=== PATIENT | female | born 1965 | race Hispanic/Latino ===

== ENCOUNTER 2020-08-11 18:44 | Inpatient (IN) | payer MEDICAID ==
[2020-08-12] MEDS: TEMAZEPAM 15 MG CAP PO PRN ×2 (00:52→21:31)
--- NOTE | 2020-08-12 09:33 | History and Physical Report ---
GP History & Physical - History of Present Illness Date of admission: 08/11/20 Date of Examination: 08/12/20 Reason for Admission: Impaired reality testing, Failure of Outpatient Treatment History of Present Illness: Per Admission Note: pt arrived to the unit at approximately 2135 ambulatory accompanied by two EMS staff on steady gait. pt is on 1013 for paranoia and hallucinations for two weeks. pt is alert and orientedx4, calm and cooperative, pt reported that she got upset and got of control that is why she is here. she reported she has an amplifier in her ear where she can hear other conversations. pt denies si/hi, denies a/v/h. pt said that she went to skilled nursing after being partial paralized 2019; had peg tube that was removed on July 24. pt has healing pressure ulcer to sacrum area, no drainage, wound appeared clean and we ll taken care of, pt stated that she washes it with soap and water. scars on abdominal area where peg tube was taken out, bruises on bilateral arms. pt signs all admission papers including 1011. pt has history of HTN, DVT, anemia, divertuculitis, hypothyroidism, anxiety, thrombocytopenia, cognitive communication deficit, schizoaffective. pt orients to unit and unit guideline explained. snack offered to pt, temazepam 15mg po given for sleep. vital signs stable, no distress noted, will continue to monitor for safety. Lisa Cuellar is a 54y/o female patient who was admitted for having psychosis. During my evaluation of the patient she is lying in bed awake. She patient is delusional, paranoid, having flight of ideas and difficult to follow. She starts by showing my bruises on her right arm. The patient says "I was given shots by these two guards." The patient says she has a son, whom everybody keeps telling her that he's , according to her. She says she is in a skilled nursing and was partially paralized. She also states she has a "home at [facility] The patient then starts talking about "this man and his . I was going to their catholic." She says "they have an amplifier in my ear. He's evil." She says "I know nobody believes me but here's my right hand to God." She raises her left hand. The patient then starts digging in her ear, and states "there is some sticky stuff in my ear. I can hear all sorts of music." PAST PSYCHIATRIC HISTORY: Unable to adequately assess PAST MEDICAL HISTORY: HTN, DVT, anemia, diverticulites Family Psychiatric History: None reported or documented SOCIAL HISTORY Unable to assess REVIEW OF SYSTEMS Constitutional: Negative for weight loss ENT: Negative for stridor Respiratory: Negative for cough or hemoptysis All other systems reviewed and are negative MENTAL STATUS EXAMINATION General Appearance and Behavior: Age appropriate, good hygiene, wearing appropriate clothes, cooperative polite with questioning. Cooperation: engaged Psychomotor Behavior: Psychomotor normal Mood: "not good" Affect and affective range: congruent with stated mood Thought Process: impaired Thought Content: delusions, paranoia, hallucinations Speech: flight of ideas Suicidal Ideation: Denies Homicidal Ideation: Denies Hallucinations: Auditory Delusions: yes, paranoid Impulse Control: Impaired Insight and Judgment: Poor Memory: Limited Attention: attentive Orientation: a/o Diagnoses: Schizoaffective Disorder Treatment Plan Patient admitted for inpatient psychiatric evaluation, medication adjustment and close monitoring The patient's behavior, mood, sleep and appetite will be closely monitored. Patient enrolled in individual and group therapeutic sessions and encouraged to attend. Patient provided with a safe and structured environment. Patient's physical health needs will be addressed by the Hospitalist. Hospitalist Consulted Labs including CBC, CMP, Lipid profile and Hemoglobin A1C levels ordered for baseline reference Social Assessment will be completed and the Data Analysis Manager will work with patient and family to ensure a suitable and safe disposition Medication adjustment will be made as clinically indicated Start Home Meds Start Olanzapine 5mg po daily Usual Wellness Mu-Ism/Preservation: - Start Trazodone 50 mg po QHS & 50 mg po QHS PRN between 10 PM & 2 AM for insomnia - Start Melatonin 5 mg po QHS to promote circadian rhythm The patient agreed on the treatment plan, understood the risk, benefit, alternative treatment, potential consequence of no treatment, and gave informed consent. Initial Certification I certify that the inpatient psychiatric services are required for treatment that could reasonably be expected to improve the patient's condition. Estimated days: 3 Post hospital care: primary care provider, psychiatric provider Case staffed with Dr. Mina Legal Status: Voluntary Reaction to Hospitalization: Accepting Medications and Allergies Allergies Allergy/AdvReac Type Severity Reaction Status Date / Time Penicillins Allergy Unknown Verified 08/11/20 21:07 Home Medications Medication Instructions Recorded Confirmed Last Taken Type Ascorbic Acid [Vitamin C] 500 mg PO DAILY 08/11/20 08/11/20 Unknown History Cholecalciferol Vit D3 [Vitamin D3 1,000 unit PO QDAY 08/11/20 08/11/20 Unknown History 1,000 UNIT TAB] Temazepam [Restoril] 15 mg PO QHS PRN 08/11/20 08/11/20 Unknown History Active Meds: Active Medications Temazepam (Temazepam 15 Mg Cap) 15 mg PO QHS PRN PRN Reason: Insomnia Last Admin: 08/12/20 00:52 Dose: 15 mg Documented by: Results - Results Labs/Vitals: Laboratory Last Values POC Glucose 95 mg/dL (70-105) 08/11/20 21:45 Last Vital Signs Temp 97.9 F 08/12/20 08:08 Pulse 96 H 08/12/20 08:08 Resp 18 08/12/20 08:08 BP 161/98 08/12/20 08:10 Pulse Ox 98 08/12/20 08:08 Physical Examination - Constitutional Vitals: Vital Signs Temp Pulse Resp BP Pulse Ox 97.9 F 96 H 18 161/98 98 08/12/20 08:08 08/12/20 08:08 08/12/20 08:08 08/12/20 08:10 08/12/20 08:08 Temperature -Last 24 Hours Temperature 97.9 F Temperature 98.1 F Mental Status Exam - Vital signs Last Vital Signs Temp 97.9 F 08/12/20 08:08 Pulse 96 H 08/12/20 08:08 Resp 18 08/12/20 08:08 BP 161/98 08/12/20 08:10 Pulse Ox 98 08/12/20 08:08 Physician Certification - Certification Statement Physician Certification Statement: This is an acknowledgement statement that LISA CUELLAR is a 54 year old F who requires inpatient psychiatric admission for treatment which could reasonably be expected to improve the patient's condition for Estimated period of time patient will need to remain in the hospital: [ ] Plan for post-hospital care: [ ]
[2020-08-12] MEDS: CHOLECALCIFEROL (VIT D3) 1000 UNIT (25 mcg) TAB PO SCH (10:40)
[2020-08-12] MEDS: ASCORBIC ACID 500 MG TAB PO SCH (10:40)
--- NOTE | 2020-08-13 10:26 | Progress Note ---
Subjective Date of service: 08/13/20 Principal diagnosis: Schizoaffective Disorder Subjective Comment: Per nurse note: pt is alert and orientedx4, calm and cooperative, able to make needs known, interacts appropriately with peers, she has flight of ideas, she is delusional that she might be , she believed she was raped while asleep in prison. pt was medicated with restoril 15mg po prn sleep with minimal effect, she presents as sleeping for 5hrs, no distress noted, will continue to monitor for safety. The patient was seen today, she is up brushing her teeth. She is delusional, having flight of ideas and difficulty to follow. She appears anxious. She is fidgety and constantly talking. She showing me her arm and states she wants pictures of it. They are old bruises. She starts talking about some stuff she says happened at [facility]. She then says she gave $50 to some woman to buy her some clothes. The patient says "it's some woman who was here." She then says "I have to talk to my son, he might be ." REVIEW OF SYSTEMS Constitutional: Negative for weight loss ENT: Negative for stridor Respiratory: Negative for cough or hemoptysis All other systems reviewed and are negative MENTAL STATUS EXAMINATION General Appearance and Behavior: Age appropriate, good hygiene, wearing appropriate clothes, cooperative polite with questioning. Cooperation: engaged Psychomotor Behavior: Psychomotor normal Mood: "not good" Affect and affective range: congruent with stated mood Thought Process: impaired Thought Content: delusions, paranoia, hallucinations Speech: flight of ideas Suicidal Ideation: Denies Homicidal Ideation: Denies Hallucinations: Auditory Delusions: yes, paranoid Impulse Control: Impaired Insight and Judgment: Poor Memory: Limited Attention: attentive Orientation: a/o Diagnoses: Schizoaffective Disorder Treatment Plan Patient admitted for inpatient psychiatric evaluation, medication adjustment and close monitoring The patient's behavior, mood, sleep and appetite will be closely monitored. Patient enrolled in individual and group therapeutic sessions and encouraged to attend. Patient provided with a safe and structured environment. Patient's physical health needs will be addressed by the Hospitalist. Hospitalist Consulted Labs including CBC, CMP, Lipid profile and Hemoglobin A1C levels ordered for baseline reference Social Assessment will be completed and the Shoulder Joiner will work with patient and family to ensure a suitable and safe disposition Medication adjustment will be made as clinically indicated Increase Olanzapine 10mg po daily Start Klonopin 0.5mg po BID x 2 days Usual Wellness Caodaism/Preservation: - Start Trazodone 50 mg po QHS & 50 mg po QHS PRN between 10 PM & 2 AM for insomnia - Start Melatonin 5 mg po QHS to promote circadian rhythm The patient agreed on the treatment plan, understood the risk, benefit, alternative treatment, potential consequence of no treatment, and gave informed consent. Estimated days: 3 Post hospital care: primary care provider, psychiatric provider Case staffed with Dr. Mina Medications and Allergies Allergies Allergy/AdvReac Type Severity Reaction Status Date / Time Penicillins Allergy Unknown Verified 08/11/20 21:07 Home Medications Medication Instructions Recorded Confirmed Last Taken Type Ascorbic Acid [Vitamin C] 500 mg PO DAILY 08/11/20 08/11/20 Unknown History Cholecalciferol Vit D3 [Vitamin D3 1,000 unit PO QDAY 08/11/20 08/11/20 Unknown History 1,000 UNIT TAB] Temazepam [Restoril] 15 mg PO QHS PRN 08/11/20 08/11/20 Unknown History Active Meds: Active Medications Ascorbic Acid (Ascorbic Acid 500 Mg Tab) 500 mg PO DAILY [facility] Last Admin: 08/12/20 10:40 Dose: 500 mg Documented by: Cholecalciferol (Cholecalciferol (Vit D3) 1000 Unit (25 Mcg) Tab) 1,000 unit PO QDAY [facility] Last Admin: 08/12/20 10:40 Dose: 1,000 unit Documented by: Olanzapine (Olanzapine 5 Mg Tab) 5 mg PO QDAY [facility] Last Admin: 08/12/20 10:43 Dose: Not Given Documented by: Temazepam (Temazepam 15 Mg Cap) 15 mg PO QHS PRN PRN Reason: Insomnia Last Admin: 08/12/20 21:31 Dose: 15 mg Documented by: Results - Results Labs/Vitals: Laboratory Last Values POC Glucose 95 mg/dL (70-105) 08/11/20 21:45 Last Vital Signs Temp 97.9 F 08/13/20 08:05 Pulse 75 08/13/20 08:05 Resp 18 08/13/20 08:05 BP 165/104 08/13/20 08:05 Pulse Ox 96 08/13/20 08:05
[2020-08-13] MEDS: CHOLECALCIFEROL (VIT D3) 1000 UNIT (25 mcg) TAB PO SCH (10:27)
[2020-08-13] MEDS: ASCORBIC ACID 500 MG TAB PO SCH (14:35)
[2020-08-13 15:44] LABS: Basophils % (Auto) 0.6 % (0.0-1.8); Eosinophils # (Auto) 0.1 K/mm3 (0.0-0.4); Eosinophils % (Auto) 0.9 % (0.0-4.3); Hematocrit 39.3 % (30.3-42.9); Hemoglobin 13.9 gm/dl (10.1-14.3); Lymphocytes # (Auto) 2.4 K/mm3 (1.2-5.4); Lymphocytes % (Auto) 32.1 % (13.4-35.0); Mean Corpuscular HGB Conc 35 % (30-34); Mean Corpuscular Volume 87 fl (79-97); Monocytes # (Auto) 0.5 K/mm3 (0.0-0.8); Monocytes % (Auto) 6.1 % (0.0-7.3); Platelet Count 321 K/mm3 (140-440); Red Blood Count 4.52 M/mm3 (3.65-5.03)
[2020-08-13 16:05] LABS: Alanine Aminotransferase 36 units/L (7-56); Albumin 4.4 g/dL (3.9-5); Blood Urea Nitrogen 21 mg/dL (7-17); Calcium 9.8 mg/dL (8.4-10.2); Chol/HDL Ratio 2.77 %; HDL Cholesterol 53 mg/dL (40-59); Hemolysis Index 10; LDL Cholesterol,Direct 80 mg/dL (50-130)
[2020-08-13 16:07] LABS: BUN/Creatinine Ratio 42
[2020-08-13] MEDS: clonazePAM 0.5 MG TAB PO SCH ×2 (17:00→21:33)
[2020-08-13] MEDS: TEMAZEPAM 15 MG CAP PO PRN (21:54)
[2020-08-14] MEDS: clonazePAM 0.5 MG TAB PO SCH (02:55)
--- NOTE | 2020-08-14 09:27 | Progress Note ---
Subjective Date of service: 08/14/20 Principal diagnosis: Schizoaffective Disorder Subjective Comment: Per nurse: pt told nurse she does not take olanzapine The patient was seen today, she is still delusional and speaking of amplifiers at a [facility] she used to go to. She also is still obsessing over the nursing place she was last at. She denies SI/HI or hallucinations of any kind. REVIEW OF SYSTEMS Constitutional: Negative for weight loss ENT: Negative for stridor Respiratory: Negative for cough or hemoptysis All other systems reviewed and are negative MENTAL STATUS EXAMINATION General Appearance and Behavior: Age appropriate, good hygiene, wearing appropriate clothes, cooperative polite with questioning. Cooperation: engaged Psychomotor Behavior: Psychomotor normal Mood: "not good" Affect and affective range: congruent with stated mood Thought Process: impaired Thought Content: delusions, paranoia, hallucinations Speech: flight of ideas Suicidal Ideation: Denies Homicidal Ideation: Denies Hallucinations: Auditory Delusions: yes, paranoid Impulse Control: Impaired Insight and Judgment: Poor Memory: Limited Attention: attentive Orientation: a/o Diagnoses: Schizoaffective Disorder Treatment Plan Patient admitted for inpatient psychiatric evaluation, medication adjustment and close monitoring The patient's behavior, mood, sleep and appetite will be closely monitored. Patient enrolled in individual and group therapeutic sessions and encouraged to attend. Patient provided with a safe and structured environment. Patient's physical health needs will be addressed by the Hospitalist. Hospitalist Consulted Labs including CBC, CMP, Lipid profile and Hemoglobin A1C levels ordered for baseline reference Social Assessment will be completed and the Lightning Rod Erector will work with patient and family to ensure a suitable and safe disposition Medication adjustment will be made as clinically indicated d/c Olanzapine 10mg po daily Start Abilify 10mg po daily Usual Wellness Jain/Preservation: - Start Trazodone 50 mg po QHS & 50 mg po QHS PRN between 10 PM & 2 AM for insomnia - Start Melatonin 5 mg po QHS to promote circadian rhythm The patient agreed on the treatment plan, understood the risk, benefit, alternative treatment, potential consequence of no treatment, and gave informed consent. Estimated days: 3 Post hospital care: primary care provider, psychiatric provider Case staffed with Dr. Mina Medications and Allergies Allergies Allergy/AdvReac Type Severity Reaction Status Date / Time Penicillins Allergy Unknown Verified 08/11/20 21:07 Home Medications Medication Instructions Recorded Confirmed Last Taken Type Ascorbic Acid [Vitamin C] 500 mg PO DAILY 08/11/20 08/11/20 Unknown History Cholecalciferol Vit D3 [Vitamin D3 1,000 unit PO QDAY 08/11/20 08/11/20 Unknown History 1,000 UNIT TAB] Temazepam [Restoril] 15 mg PO QHS PRN 08/11/20 08/11/20 Unknown History Active Meds: Active Medications Ascorbic Acid (Ascorbic Acid 500 Mg Tab) 500 mg PO DAILY [facility] Last Admin: 08/13/20 14:35 Dose: 500 mg Documented by: Cholecalciferol (Cholecalciferol (Vit D3) 1000 Unit (25 Mcg) Tab) 1,000 unit PO QDAY [facility] Last Admin: 08/13/20 10:27 Dose: 1,000 unit Documented by: Clonazepam (Clonazepam 0.5 Mg Tab) 0.25 mg PO BID [facility] Stop: 08/15/20 06:00 Last Admin: 08/14/20 02:55 Dose: 0.25 mg Documented by: Olanzapine (Olanzapine 10 Mg Tab) 10 mg PO QDAY [facility] Temazepam (Temazepam 15 Mg Cap) 15 mg PO QHS PRN PRN Reason: Insomnia Last Admin: 08/13/20 21:54 Dose: 15 mg Documented by: Results - Results Labs/Vitals: Laboratory Last Values WBC 7.4 K/mm3 (4.5-11.0) 08/13/20 15:15 RBC 4.52 M/mm3 (3.65-5.03) 08/13/20 15:15 Hgb 13.9 gm/dl (10.1-14.3) 08/13/20 15:15 Hct 39.3 % (30.3-42.9) 08/13/20 15:15 MCV 87 fl (79-97) 08/13/20 15:15 MCH 31 pg (28-32) 08/13/20 15:15 MCHC 35 % (30-34) H 08/13/20 15:15 RDW 13.0 % (13.2-15.2) L 08/13/20 15:15 Plt Count 321 K/mm3 (140-440) 08/13/20 15:15 Lymph % (Auto) 32.1 % (13.4-35.0) 08/13/20 15:15 Smyth % (Auto) 6.1 % (0.0-7.3) 08/13/20 15:15 Eos % (Auto) 0.9 % (0.0-4.3) 08/13/20 15:15 Baso % (Auto) 0.6 % (0.0-1.8) 08/13/20 15:15 Lymph # (Auto) 2.4 K/mm3 (1.2-5.4) 08/13/20 15:15 Smyth # (Auto) 0.5 K/mm3 (0.0-0.8) 08/13/20 15:15 Eos # (Auto) 0.1 K/mm3 (0.0-0.4) 08/13/20 15:15 Baso # (Auto) 0.0 K/mm3 (0.0-0.1) 08/13/20 15:15 Seg Neutrophils % 60.3 % (40.0-70.0) 08/13/20 15:15 Seg Neutrophils # 4.4 K/mm3 (1.8-7.7) 08/13/20 15:15 Sodium 135 mmol/L (137-145) L 08/13/20 15:15 Potassium 4.0 mmol/L (3.6-5.0) 08/13/20 15:15 Chloride 99.1 mmol/L (98-107) 08/13/20 15:15 Carbon Dioxide 26 mmol/L (22-30) 08/13/20 15:15 Anion Gap 14 mmol/L 08/13/20 15:15 BUN 21 mg/dL (7-17) H 08/13/20 15:15 Creatinine 0.5 mg/dL (0.6-1.2) L 08/13/20 15:15 Estimated GFR > 60 ml/min 08/13/20 15:15 BUN/Creatinine Ratio 42 % 08/13/20 15:15 Glucose 100 mg/dL (65-100) 08/13/20 15:15 POC Glucose 95 mg/dL (70-105) 08/11/20 21:45 Hemoglobin A1c 5.2 % (4-6) 08/13/20 15:15 Calcium 9.8 mg/dL (8.4-10.2) 08/13/20 15:15 Total Bilirubin 0.60 mg/dL (0.1-1.2) 08/13/20 15:15 AST 30 units/L (5-40) 08/13/20 15:15 ALT 36 units/L (7-56) 08/13/20 15:15 Alkaline Phosphatase 131 units/L (35-129) H 08/13/20 15:15 Total Protein 7.4 g/dL (6.3-8.2) 08/13/20 15:15 Albumin 4.4 g/dL (3.9-5) 08/13/20 15:15 Albumin/Globulin Ratio 1.5 % 08/13/20 15:15 Triglycerides 152 mg/dL (2-149) H 08/13/20 15:15 Cholesterol 147 mg/dL (50-199) 08/13/20 15:15 LDL Cholesterol Direct 80 mg/dL (50-130) 08/13/20 15:15 HDL Cholesterol 53 mg/dL (40-59) 08/13/20 15:15 Cholesterol/HDL Ratio 2.77 % 08/13/20 15:15 TSH 0.893 mlU/mL (0.270-4.200) 08/13/20 15:15 Last Vital Signs Temp 98.3 F 08/13/20 19:42 Pulse 88 08/13/20 19:42 Resp 16 08/13/20 19:42 BP 163/97 08/13/20 19:42 Pulse Ox 99 08/13/20 19:42
[2020-08-14] MEDS: CHOLECALCIFEROL (VIT D3) 1000 UNIT (25 mcg) TAB PO SCH (09:32)
[2020-08-14] MEDS: ASCORBIC ACID 500 MG TAB PO SCH (09:32)
[2020-08-14] MEDS: ARIPiprazole 10 MG TAB PO SCH (12:28)
--- NOTE | 2020-08-14 12:33 | Consultation ---
History of Present Illness - Reason for Consult Consult date: 08/14/20 medical mx - History of Present Illness This is a 54-year-old female with a history of hypertension, DVT, anemia presented to ER for paranoia and hallucinations for 2 weeks. Patient was on 1030 in the ER and admitted for psychosis. Patient has been admitted to the psych unit for further stabilization. Hospitalist service has been consulted for medical management. Today during my encounter patient was eating lunch. S he denied any chest pain shortness of breath nausea vomiting abdominal pain or lower extremity swelling. She did endorse constipation and requested for stool softener as needed. Patient appeared to be alert awake and oriented x3. Vitals noted and appeared to be stable. PAST MEDICAL AND SURGICAL HISTORY: HTN, DVT, anemia, diverticulites Family Psychiatric History: None reported or documented SOCIAL HISTORY: Denies any history of drug abuse. REVIEW OF SYSTEMS Constitutional: no fever, no chills, no weight loss Ears, eyes, nose, mouth and throat: no nasal congestion, no nasal discharge, no sinus pressure, no vision change, no red eye. Neck: No neck pain or rigidity. Cardiovascular: No chest pain, no orthopnea, no palpitations, no leg swelling Respiratory: No shortness of breath, no cough, no congestion, no wheezing Gastrointestinal: no abdominal pain, no nausea, no vomiting Genitourinary : no dysuria, no hematuria Musculoskeletal: no joint swelling or muscle ache Integumentary: no rash, no pruritis Neurological: no parathesias, no numbness, no tingling Endocrine: no cold or heat intolerance, no polyuria or polydipsia Hematologic/Lymphatic: no easy bruising, no easy bleeding, no gland swelling Allergic/Immunologic: no urticaria, no angioedema. Physical exam: GENERAL: well-developed malnourished white female without any acute distress HEENT: Normocephalic. Atraumatic. No conjunctival congestion or icterus. Patient has moist mucous membranes. NECK: Supple. Trachea midline. CHEST/LUNGS: Clear to auscultated bilaterally, breathing nonlabored. No wheezes crackles or rhonchi. HEART/CARDIOVASCULAR: Regular in rate and rhythm. S1 and S2 positive. ABDOMEN: Abdomen is soft, nontender. Patient has normal bowel sounds. SKIN: There is no rash. Warm and dry. NEURO: No focal motor deficit. Follows command. MUSCULOSKELETAL: No joint effusion or tenderness. EXTRIMITY: No edema, no cyanosis or clubbing. PSYCH: Cooperative. Diagnoses: Schizoaffective Disorder A/p Schizoaffective disorder Patient admitted for inpatient psychiatric evaluation, medication adjustment and close monitoring, will defer to primary for management Other chronic medical problems Hypertension, uncontrolled History of DVT on any anticoagulation Moderate protein calorie malnutrition History of diverticulosis --Patient clinically appears to be stable. Continue current home medications --We will initiate Norvasc for blood pressure control --MiraLAX as needed for constipation --Encourage nutritional supplements --Further follow-up as outpatient with PCP --DVT prophylaxis, patient is ambulatory Medications and Allergies Allergies Allergy/AdvReac Type Severity Reaction Status Date / Time Penicillins Allergy Unknown Verified 08/11/20 21:07 Home Medications Medication Instructions Recorded Confirmed Last Taken Type Ascorbic Acid [Vitamin C] 500 mg PO DAILY 08/11/20 08/11/20 Unknown History Cholecalciferol Vit D3 [Vitamin D3 1,000 unit PO QDAY 08/11/20 08/11/20 Unknown History 1,000 UNIT TAB] OLANZapine [Zyprexa] 5 mg PO DAILY #30 tablet 08/16/20 Unknown Rx Temazepam [Restoril] 15 mg PO QHS PRN #30 cap 08/16/20 Unknown Rx Active Meds: Active Medications Aripiprazole (Aripiprazole 10 Mg Tab) 10 mg PO QDAY [facility] Last Admin: 08/14/20 12:28 Dose: Not Given Documented by: Ascorbic Acid (Ascorbic Acid 500 Mg Tab) 500 mg PO DAILY [facility] Last Admin: 08/14/20 09:32 Dose: 500 mg Documented by: Cholecalciferol (Cholecalciferol (Vit D3) 1000 Unit (25 Mcg) Tab) 1,000 unit PO QDAY [facility] Last Admin: 08/14/20 09:32 Dose: 1,000 unit Documented by: Temazepam (Temazepam 15 Mg Cap) 15 mg PO QHS PRN PRN Reason: Insomnia Last Admin: 08/13/20 21:54 Dose: 15 mg Documented by: Exam - Constitutional Vitals: Temp Pulse Resp BP Pulse Ox 98.3 F 88 16 163/97 99 08/13/20 19:42 08/13/20 19:42 08/13/20 19:42 08/13/20 19:42 08/13/20 19:42 Results - Labs CBC & Chem 7: 07/05/21 15:15 08/13/20 15:15 Labs: Abnormal lab results 08/13/20 08/13/20 Range/Units 15:15 15:15 MCHC 35 H (30-34) % RDW 13.0 L (13.2-15.2) % Sodium 135 L (137-145) mmol/L BUN 21 H (7-17) mg/dL Creatinine 0.5 L (0.6-1.2) mg/dL Alkaline Phosphatase 131 H (35-129) units/L Triglycerides 152 H (2-149) mg/dL
[2020-08-14] MEDS: TEMAZEPAM 15 MG CAP PO PRN (21:30)
[2020-08-15] MEDS: ASCORBIC ACID 500 MG TAB PO SCH (09:34)
[2020-08-15] MEDS: CHOLECALCIFEROL (VIT D3) 1000 UNIT (25 mcg) TAB PO SCH (09:34)
[2020-08-15] MEDS: ARIPiprazole 10 MG TAB PO SCH (09:37)
--- NOTE | 2020-08-15 10:26 | Progress Note ---
Subjective Date of service: 08/15/20 Principal diagnosis: Schizoaffective Disorder Subjective Comment: Per nurse: Per nurse the patient has been refusing oral psych meds The patient was seen today, she is still very delusional. She is talking about her " son" and trying to locate him. She denies SI/HI or hallucinations of any kind. Reason for continued acute psychiatric inpatient treatment: The patient has been refusing oral psych meds and is still very delusional. Will give long acting injection; Haldol decanoate since tolerability not established for invega sustenna. Will continue to monitor the patient for effectiveness and SE. REVIEW OF SYSTEMS Constitutional: Negative for weight loss ENT: Negative for stridor Respiratory: Negative for cough or hemoptysis All other systems reviewed and are negative MENTAL STATUS EXAMINATION General Appearance and Behavior: Age appropriate, good hygiene, wearing appropriate clothes, cooperative polite with questioning. Cooperation: engaged Psychomotor Behavior: Psychomotor normal Mood: "not good" Affect and affective range: congruent with stated mood Thought Process: impaired Thought Content: delusions, paranoia, hallucinations Speech: flight of ideas Suicidal Ideation: Denies Homicidal Ideation: Denies Hallucinations: Auditory Delusions: yes, paranoid Impulse Control: Impaired Insight and Judgment: Poor Memory: Limited Attention: attentive Orientation: a/o Diagnoses: Schizoaffective Disorder Treatment Plan Patient admitted for inpatient psychiatric evaluation, medication adjustment and close monitoring The patient's behavior, mood, sleep and appetite will be closely monitored. Patient enrolled in individual and group therapeutic sessions and encouraged to attend. Patient provided with a safe and structured environment. Patient's physical health needs will be addressed by the Hospitalist. Hospitalist Consulted Labs including CBC, CMP, Lipid profile and Hemoglobin A1C levels ordered for baseline reference Social Assessment will be completed and the Cvicu Rn will work with patient and family to ensure a suitable and safe disposition Medication adjustment will be made as clinically indicated d/c Olanzapine 10mg po daily d/c Abilify 10mg po daily Haldol Deconoate 50mg IM x 1, the patient refusing oral antipsychotics Usual Wellness Jehovah'[employer] Witness/Preservation: - Start Trazodone 50 mg po QHS & 50 mg po QHS PRN between 10 PM & 2 AM for insomnia - Start Melatonin 5 mg po QHS to promote circadian rhythm The patient agreed on the treatment plan, understood the risk, benefit, alternative treatment, potential consequence of no treatment, and gave informed consent. Estimated days: 3 Post hospital care: primary care provider, psychiatric provider Case staffed with Dr. Mina Medications and Allergies Allergies Allergy/AdvReac Type Severity Reaction Status Date / Time Penicillins Allergy Unknown Verified 08/11/20 21:07 Home Medications Medication Instructions Recorded Confirmed Last Taken Type Ascorbic Acid [Vitamin C] 500 mg PO DAILY 08/11/20 08/11/20 Unknown History Cholecalciferol Vit D3 [Vitamin D3 1,000 unit PO QDAY 08/11/20 08/11/20 Unknown History 1,000 UNIT TAB] Temazepam [Restoril] 15 mg PO QHS PRN 08/11/20 08/11/20 Unknown History Active Meds: Active Medications Aripiprazole (Aripiprazole 10 Mg Tab) 10 mg PO QDAY [facility] [place] Last Admin: 08/15/20 09:37 Dose: Not Given Documented by: Ascorbic Acid (Ascorbic Acid 500 Mg Tab) 500 mg PO DAILY [facility] [place] Last Admin: 08/15/20 09:34 Dose: 500 mg Documented by: Cholecalciferol (Cholecalciferol (Vit D3) 1000 Unit (25 Mcg) Tab) 1,000 unit PO QDAY [facility] [place] Last Admin: 08/15/20 09:34 Dose: 1,000 unit Documented by: Temazepam (Temazepam 15 Mg Cap) 15 mg PO QHS PRN PRN Reason: Insomnia Last Admin: 08/14/20 21:30 Dose: 15 mg Documented by: Results - Results Labs/Vitals: Laboratory Last Values WBC 7.4 K/mm3 (4.5-11.0) 08/13/20 15:15 RBC 4.52 M/mm3 (3.65-5.03) 08/13/20 15:15 Hgb 13.9 gm/dl (10.1-14.3) 08/13/20 15:15 Hct 39.3 % (30.3-42.9) 08/13/20 15:15 MCV 87 fl (79-97) 08/13/20 15:15 MCH 31 pg (28-32) 08/13/20 15:15 MCHC 35 % (30-34) H 08/13/20 15:15 RDW 13.0 % (13.2-15.2) L 08/13/20 15:15 Plt Count 321 K/mm3 (140-440) 08/13/20 15:15 Lymph % (Auto) 32.1 % (13.4-35.0) 08/13/20 15:15 [place] % (Auto) 6.1 % (0.0-7.3) 08/13/20 15:15 Eos % (Auto) 0.9 % (0.0-4.3) 08/13/20 15:15 Baso % (Auto) 0.6 % (0.0-1.8) 08/13/20 15:15 Lymph # (Auto) 2.4 K/mm3 (1.2-5.4) 08/13/20 15:15 [place] # (Auto) 0.5 K/mm3 (0.0-0.8) 08/13/20 15:15 Eos # (Auto) 0.1 K/mm3 (0.0-0.4) 08/13/20 15:15 Baso # (Auto) 0.0 K/mm3 (0.0-0.1) 08/13/20 15:15 Seg Neutrophils % 60.3 % (40.0-70.0) 08/13/20 15:15 Seg Neutrophils # 4.4 K/mm3 (1.8-7.7) 08/13/20 15:15 Sodium 135 mmol/L (137-145) L 08/13/20 15:15 Potassium 4.0 mmol/L (3.6-5.0) 08/13/20 15:15 Chloride 99.1 mmol/L (98-107) 08/13/20 15:15 Carbon Dioxide 26 mmol/L (22-30) 08/13/20 15:15 Anion Gap 14 mmol/L 08/13/20 15:15 BUN 21 mg/dL (7-17) H 08/13/20 15:15 Creatinine 0.5 mg/dL (0.6-1.2) L 08/13/20 15:15 Estimated GFR > 60 ml/min 08/13/20 15:15 BUN/Creatinine Ratio 42 % 08/13/20 15:15 Glucose 100 mg/dL (65-100) 08/13/20 15:15 POC Glucose 95 mg/dL (70-105) 08/11/20 21:45 Hemoglobin A1c 5.2 % (4-6) 08/13/20 15:15 Calcium 9.8 mg/dL (8.4-10.2) 08/13/20 15:15 Total Bilirubin 0.60 mg/dL (0.1-1.2) 08/13/20 15:15 AST 30 units/L (5-40) 08/13/20 15:15 ALT 36 units/L (7-56) 08/13/20 15:15 Alkaline Phosphatase 131 units/L (35-129) H 08/13/20 15:15 Total Protein 7.4 g/dL (6.3-8.2) 08/13/20 15:15 Albumin 4.4 g/dL (3.9-5) 08/13/20 15:15 Albumin/Globulin Ratio 1.5 % 08/13/20 15:15 Triglycerides 152 mg/dL (2-149) H 08/13/20 15:15 Cholesterol 147 mg/dL (50-199) 08/13/20 15:15 LDL Cholesterol Direct 80 mg/dL (50-130) 08/13/20 15:15 HDL Cholesterol 53 mg/dL (40-59) 08/13/20 15:15 Cholesterol/HDL Ratio 2.77 % 08/13/20 15:15 TSH 0.893 mlU/mL (0.270-4.200) 08/13/20 15:15 Last Vital Signs Temp 97.5 F L 08/15/20 08:28 Pulse 87 08/15/20 08:28 Resp 18 08/15/20 08:28 BP 139/99 08/15/20 08:28 Pulse Ox 98 08/15/20 08:28
[2020-08-15] MEDS ORDERED: HALOPERIDOL DECANOATE 100 MG/1 ML INJ IM SCH (11:00)
[2020-08-15] MEDS ORDERED: MAGNESIUM HYDROXIDE (MOM) ORAL LIQD UDC PO PRN (20:30)
[2020-08-15] MEDS: TEMAZEPAM 15 MG CAP PO PRN (20:53)
[2020-08-15] MEDS ORDERED: ACETAMINOPHEN 325 MG TAB PO PRN (20:59)
--- NOTE | 2020-08-16 08:48 | Discharge Summary ---
Providers - Providers Date of Admission: 08/11/20 18:44 Date of discharge: 08/16/20 Attending physician: CAROLINE KULKARNI MD 08/11/20 19:59 Consult to Physician [CONS] Routine Comment: Consulting Provider: PEDRO HALL Physician Instructions: Reason For Exam: manage medical conditionss Primary care physician: CAROLINE KULKARNI MD Hospitalization Reason for admission: psychosis Admitting Diagnosis: F25.9 - SCHIZOAFFECTIVE DISORDER, UNSPECIFIED Condition: Stable Hospital course: The patient was provided inpatient psychiatric treatment with safe and supportive care, medication adjustment, adverse effect monitoring, medical evaluations, medical treatments, assessment and psycho-education. The patient's mood, cognition, behavior, moral support are improved and stabilized. St the time of discharge, the patient had no endangering behavior and no debilitating adverse effects. The patient agreed on potential consequences of no treatment and gave informed consent. The patient's medications was adjusted. At the time of discharge she was calm, cooperative and polite. The patient does have some delusions about her son but they are not threatening in nature to herself or anyone else. She has not shown any signs of aggressive behavior. The nurse caring for the patient today also states she has had no threatening or harmful behaviors toward herself or others. Disposition: DC/[place]-[facility] Time spent for discharge: 38 Allergies/Adverse Reactions: Allergies Penicillins Allergy (Verified 08/11/20 21:07) Unknown Vital Signs: Last Vital Signs Temp 97.4 F L 08/16/20 07:48 Pulse 68 08/16/20 07:49 Resp 16 08/16/20 07:48 BP 150/93 08/16/20 07:48 Pulse Ox 95 08/16/20 07:49 Last Lab: Laboratory Last Values WBC 7.4 K/mm3 (4.5-11.0) 08/13/20 15:15 RBC 4.52 M/mm3 (3.65-5.03) 08/13/20 15:15 Hgb 13.9 gm/dl (10.1-14.3) 08/13/20 15:15 Hct 39.3 % (30.3-42.9) 08/13/20 15:15 MCV 87 fl (79-97) 08/13/20 15:15 MCH 31 pg (28-32) 08/13/20 15:15 MCHC 35 % (30-34) H 08/13/20 15:15 RDW 13.0 % (13.2-15.2) L 08/13/20 15:15 Plt Count 321 K/mm3 (140-440) 08/13/20 15:15 Lymph % (Auto) 32.1 % (13.4-35.0) 08/13/20 15:15 [place] % (Auto) 6.1 % (0.0-7.3) 08/13/20 15:15 Eos % (Auto) 0.9 % (0.0-4.3) 08/13/20 15:15 Baso % (Auto) 0.6 % (0.0-1.8) 08/13/20 15:15 Lymph # (Auto) 2.4 K/mm3 (1.2-5.4) 08/13/20 15:15 [place] # (Auto) 0.5 K/mm3 (0.0-0.8) 08/13/20 15:15 Eos # (Auto) 0.1 K/mm3 (0.0-0.4) 08/13/20 15:15 Baso # (Auto) 0.0 K/mm3 (0.0-0.1) 08/13/20 15:15 Seg Neutrophils % 60.3 % (40.0-70.0) 08/13/20 15:15 Seg Neutrophils # 4.4 K/mm3 (1.8-7.7) 08/13/20 15:15 Sodium 135 mmol/L (137-145) L 08/13/20 15:15 Potassium 4.0 mmol/L (3.6-5.0) 08/13/20 15:15 Chloride 99.1 mmol/L (98-107) 08/13/20 15:15 Carbon Dioxide 26 mmol/L (22-30) 08/13/20 15:15 Anion Gap 14 mmol/L 08/13/20 15:15 BUN 21 mg/dL (7-17) H 08/13/20 15:15 Creatinine 0.5 mg/dL (0.6-1.2) L 08/13/20 15:15 Estimated GFR > 60 ml/min 08/13/20 15:15 BUN/Creatinine Ratio 42 % 08/13/20 15:15 Glucose 100 mg/dL (65-100) 08/13/20 15:15 POC Glucose 95 mg/dL (70-105) 08/11/20 21:45 Hemoglobin A1c 5.2 % (4-6) 08/13/20 15:15 Calcium 9.8 mg/dL (8.4-10.2) 08/13/20 15:15 Total Bilirubin 0.60 mg/dL (0.1-1.2) 08/13/20 15:15 AST 30 units/L (5-40) 08/13/20 15:15 ALT 36 units/L (7-56) 08/13/20 15:15 Alkaline Phosphatase 131 units/L (35-129) H 08/13/20 15:15 Total Protein 7.4 g/dL (6.3-8.2) 08/13/20 15:15 Albumin 4.4 g/dL (3.9-5) 08/13/20 15:15 Albumin/Globulin Ratio 1.5 % 08/13/20 15:15 Triglycerides 152 mg/dL (2-149) H 08/13/20 15:15 Cholesterol 147 mg/dL (50-199) 08/13/20 15:15 LDL Cholesterol Direct 80 mg/dL (50-130) 08/13/20 15:15 HDL Cholesterol 53 mg/dL (40-59) 08/13/20 15:15 Cholesterol/HDL Ratio 2.77 % 08/13/20 15:15 TSH 0.893 mlU/mL (0.270-4.200) 08/13/20 15:15 Core Measure Documentation - Palliative Care Palliative Care/ Comfort Measures: Not Applicable - Core Measures Any of the following diagnoses?: none Exam - Constitutional Vitals: Temp Pulse Resp BP Pulse Ox 97.4 F L 68 16 150/93 95 08/16/20 07:48 08/16/20 07:49 08/16/20 07:48 08/16/20 07:48 08/16/20 07:49 General appearance: Present: no acute distress - EENT Eyes: Present: EOM intact ENT: hearing intact, clear oral mucosa - Neck Neck: Present: supple, normal ROM - Respiratory Respiratory effort: normal Plan Activity: advance as tolerated Weight Bearing Status: Weight Bear as Tolerated Care Plan Goals: Maintain good and stable mental health Plan of Treatment: The patient should be compliant with medications, not to use drugs, and not to drink alcohol. The patient understands that if suicidal ideas, homicidal ideas or any endangering feeling arise, the patient should seek assistance including, but not limited to crisis hotline, and emergency room. Assessment: Schizoaffective Disorder Follow up with: CAROLINE KULKARNI MD [Primary Care Provider] - 7 Days Prescriptions: Temazepam [Restoril] 15 mg PO QHS PRN #30 cap PRN Reason: Sleep OLANZapine [Zyprexa] 5 mg PO DAILY #30 tablet
[2020-08-16] MEDS: ASCORBIC ACID 500 MG TAB PO SCH (09:02)
[2020-08-16] MEDS: CHOLECALCIFEROL (VIT D3) 1000 UNIT (25 mcg) TAB PO SCH (09:02)
[2020-08-16] MEDS ORDERED: POLYETHYLENE GLYCOL 3350 17 GM POWDER PO PRN (11:00)
[2020-08-16] MEDS ORDERED: amLODIPine 10 MG TAB PO SCH (11:00)
[2020-08-16 16:37] VITALS: BP 148/67
== END 2020-08-16 16:15 | DRG 885 ==
LOC: 5A 18:44
PROVIDERS: ADMIT Psychiatry & Neurology Psychiatry; ATTEND Psychiatry & Neurology Psychiatry
DX: F25.9 Schizoaffective disorder, unspecified (principal); I10 Essential (primary) hypertension; E44.0 Moderate protein-calorie malnutrition; Z20.822 Contact with and (suspected) exposure to COVID-19; Z88.0 Allergy status to penicillin; Z86.718 Personal history of other venous thrombosis and embolism; Z68.1 Body mass index [BMI] 19.9 or less, adult; Z79.899 Other long term (current) drug therapy
CPT/HCPCS: 36415; 80053; 80061; 82962; 83036; 84443; 85025; G0378; U0003